=== PATIENT | female | born 1990 | race Caucasian/White ===

== ENCOUNTER 2019-04-14 19:14 | Emergency (ER) | payer OTHER ==
--- NOTE | 2019-04-14 20:01 | EDM.PDOC ---
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 Steward is a very pleasant 28-year-old woman with a past medical history significant for untreated ADHD, depression, and anxiety, who is 8 weeks 3 days gestation by dates, LMP 02/14/2019, Ab1. She states that she woke around 06:30 this morning with right lower quadrant abdominal pain. The pain is stabbing and throbbing in character. It does not radiate. She states that it has been constant all day, although she notes that if she is supine, the pain will tend to come and go, whereas if she is upright, it is constant. There has not been a change in the location or character of the pain over the course of the day. No associated fever, nausea, vomiting, constipation, diarrhea, or urinary symptoms. No vaginal bleeding, vaginal itching, or discharge. No prior similar symptoms, and the patient notes that her current symptoms are different than when she suffered a miscarriage in 2018. The patient has not undergone an obstetric ultrasound this . She is not taking any medications, including vitamins. The patient's PCP is Dr. Kenton Lundy. Her Surveyor Instrument Assistant is Dr. Anne Weir. The patient did receive an influenza vaccine this season. Right Lower Abdomen Pain Score (Numeric/FACES): 7 - Related Data Allergies Allergy/AdvReac Type Severity Reaction Status Date / Time No Known Allergies Allergy Verified 04/14/19 19:59 Home Meds: Home Meds . [No Known Home Meds] 04/14/19 [History] Past Medical History Psychiatric History: Reports: ADHD (untreated), Anxiety (untreated), Depression (untreated) Endocrine/Metabolic History: Reports: Obesity/BMI 30+ - Past Surgical History HEENT Surgical History: Reports: Adenoidectomy, Oral Surgery (wisdom teeth extraction), Tonsillectomy GI Surgical History: Reports: Cholecystectomy (2008) Female Surgical History: Reports: Section (x 3) Social & Family History - Tobacco Use Smoking Status *Q: Current Every Day Smoker Years of Tobacco use: 13 Packs/Tins Daily: 0.5 Packs/Tins Daily Comment: Down from 1 ppd - Alcohol Use Alcohol Use History: Yes Alcohol Use Frequency: Rarely (when not ) - Recreational Drug Use Recreational Drug Use: No - Living Situation & Occupation Living situation: Reports: , with Spouse, with Family (2 kids) Occupation: Unemployed ED ROS GENERAL - Review of Systems Review Of Systems: Comprehensive ROS is negative, except as noted in HPI. ED EXAM, GI/ABD - Physical Exam Exam: See Below Exam Limited By: No Limitations General Appearance: Alert, WD/WN, No Apparent Distress Eyes: Bilateral: Normal Appearance, EOMI Ears: Normal External Exam, Hearing Grossly Normal Nose: Normal Inspection Throat/Mouth: Normal Inspection, Normal Lips, Normal Voice, No Airway Compromise Head: Atraumatic, Normocephalic Neck: Normal Inspection, Full Range of Motion Respiratory/Chest: No Respiratory Distress, Lungs Clear, Normal Breath Sounds, No Accessory Muscle Use Cardiovascular: Normal Peripheral Pulses, Regular Rate, Rhythm, No Edema, No Gallop, No JVD, No Murmur, No Rub GI/Abdominal Exam: Normal Bowel Sounds, Soft, No Organomegaly, No Distention, No Abnormal Bruit, No Mass, Tender (RLQ only. Nontender elsewhere, and Rovsing sign is negative.), Mass (Small gravid uterus, consistent with dates) (Female) Exam: Deferred Rectal (Female) Exam: Deferred Back Exam: Normal Inspection, Full Range of Motion. No: CVA Tenderness (L), CVA Tenderness (R) Extremities: Normal Inspection, Normal Range of Motion, No Pedal Edema, Normal Capillary Refill Neurological: Alert, Oriented, Normal Cognition, No Motor/Sensory Deficits Psychiatric: Normal Affect Skin Exam: Warm, Dry, Intact, Normal Color, No Rash Course - Vital Signs Last Recorded V/S: Last Vital Signs Temp 37.6 C 04/14/19 19:57 Pulse 112 H 04/14/19 19:57 Resp 16 04/14/19 19:57 BP 120/92 H 04/14/19 19:57 Pulse Ox 100 04/14/19 19:57 - Orders/Labs/Meds Orders: Active Orders 24 hr Category Date Time Status Abdomen Ltd [US] Stat Exams 04/14/19 20:03 Taken Abdomen Pelvis w Cont [CT] Stat Exams 04/14/19 22:43 Taken OB Transvaginal [US] Stat Exams 04/14/19 20:02 Taken Sodium Chloride 0.9% [Normal Saline] 1,000 ml Med 04/14/19 20:15 Active IV ASDIRECTED Medication Orders Sodium Chloride (Normal Saline) 1,000 mls @ 100 mls/hr IV ASDIRECTED YENNIFER Last Admin: 04/14/19 20:39 Dose: 100 mls/hr Labs: Laboratory Tests 04/14/19 04/14/19 04/14/19 Range/Units 20:01 20:01 20:10 WBC (3.98-10.04) K/mm3 RBC (3.98-5.22) M/mm3 Hgb (11.2-15.7) gm/dl Hct (34.1-44.9) % MCV (79.4-94.8) fl MCH (25.6-32.2) pg MCHC (32.2-35.5) g/dl RDW Std Deviation (36.4-46.3) fL Plt Count (182-369) K/mm3 MPV (9.4-12.3) fl Neutrophils % (Manual) (40-60) % Band Neutrophils % (0-10) % Lymphocytes % (Manual) (20-40) % Atypical Lymphs % % Monocytes % (Manual) (2-10) % Eosinophils % (Manual) (0.7-5.8) % Basophils % (Manual) (0.1-1.2) Platelet Estimate Plt Morphology Comment RBC Morph Comment Sodium 138 (136-145) mEq/L Potassium 4.1 (3.5-5.1) mEq/L Chloride 106 (98-107) mEq/L Carbon Dioxide 22 (21-32) mEq/L Anion Gap 14.1 (5-15) BUN 16 (7-18) mg/dL Creatinine 0.6 (0.55-1.02) mg/dL Est Cr Clr Drug Dosing 127.85 mL/min Estimated GFR (MDRD) > 60 (>60) mL/min BUN/Creatinine Ratio 26.7 H (14-18) Glucose 84 (74-106) mg/dL Calcium 9.5 (8.5-10.1) mg/dL Total Bilirubin 0.2 (0.2-1.0) mg/dL AST 19 (15-37) U/L ALT 24 (14-59) U/L Alkaline Phosphatase 97 (46-116) U/L Total Protein 7.5 (6.4-8.2) g/dl Albumin 3.6 (3.4-5.0) g/dl Globulin 3.9 gm/dL Albumin/Globulin Ratio 0.9 L (1-2) HCG, Quant 55479.0 mIU/mL Urine Color Yellow (Yellow) Urine Appearance Clear (Clear) Urine pH 7.0 (5.0-8.0) Ur Specific [place] > or = 1.030 (1.005-1.030) Urine Protein Negative (Negative) Urine Glucose (UA) Negative (Negative) Urine Ketones Negative (Negative) Urine Occult Blood Negative (Negative) Urine Nitrite Negative (Negative) Urine Bilirubin Negative (Negative) Urine Urobilinogen 0.2 (0.2-1.0) Ur Leukocyte Esterase Negative (Negative) Urine RBC Not seen (0-5) /hpf Urine WBC 0-5 (0-5) /hpf Ur Squamous Epith Cells 0-5 (0-5) /hpf Amorphous Sediment Few H (NOT SEEN) /hpf Urine Bacteria Rare (FEW) /hpf Urine Mucus Not seen (FEW) /hpf 04/14/19 Range/Units 22:15 WBC 8.99 (3.98-10.04) K/mm3 RBC 4.50 (3.98-5.22) M/mm3 Hgb 12.9 (11.2-15.7) gm/dl Hct 38.8 (34.1-44.9) % MCV 86.2 (79.4-94.8) fl MCH 28.7 (25.6-32.2) pg MCHC 33.2 (32.2-35.5) g/dl RDW Std Deviation 42.3 (36.4-46.3) fL Plt Count 239 (182-369) K/mm3 MPV 11.4 (9.4-12.3) fl Neutrophils % (Manual) 58 (40-60) % Band Neutrophils % 1 (0-10) % Lymphocytes % (Manual) 34 (20-40) % Atypical Lymphs % 0 % Monocytes % (Manual) 6 (2-10) % Eosinophils % (Manual) 1 (0.7-5.8) % Basophils % (Manual) 0 L (0.1-1.2) Platelet Estimate Adequate Plt Morphology Comment Normal RBC Morph Comment Normal Sodium (136-145) mEq/L Potassium (3.5-5.1) mEq/L Chloride (98-107) mEq/L Carbon Dioxide (21-32) mEq/L Anion Gap (5-15) BUN (7-18) mg/dL Creatinine (0.55-1.02) mg/dL Est Cr Clr Drug Dosing mL/min Estimated GFR (MDRD) (>60) mL/min BUN/Creatinine Ratio (14-18) Glucose (74-106) mg/dL Calcium (8.5-10.1) mg/dL Total Bilirubin (0.2-1.0) mg/dL AST (15-37) U/L ALT (14-59) U/L Alkaline Phosphatase (46-116) U/L Total Protein (6.4-8.2) g/dl Albumin (3.4-5.0) g/dl Globulin gm/dL Albumin/Globulin Ratio (1-2) HCG, Quant mIU/mL Urine Color (Yellow) Urine Appearance (Clear) Urine pH (5.0-8.0) Ur Specific [place] (1.005-1.030) Urine Protein (Negative) Urine Glucose (UA) (Negative) Urine Ketones (Negative) Urine Occult Blood (Negative) Urine Nitrite (Negative) Urine Bilirubin (Negative) Urine Urobilinogen (0.2-1.0) Ur Leukocyte Esterase (Negative) Urine RBC (0-5) /hpf Urine WBC (0-5) /hpf Ur Squamous Epith Cells (0-5) /hpf Amorphous Sediment (NOT SEEN) /hpf Urine Bacteria (FEW) /hpf Urine Mucus (FEW) /hpf Meds: Medications Generic Name Dose Route Start Last Admin Trade Name Freq PRN Reason Stop Dose Admin Sodium Chloride 1,000 mls @ 100 mls/hr 04/14/19 20:15 04/14/19 20:39 Normal Saline IV 100 mls/hr ASDIRECTED YENNIFER Administration - Re-Assessments/Exams Free Text/Narrative Re-Assessment/Exam: 04/14/19 19:58 The patient's history and physical examination are concerning for acute appendicitis. Patient is willing to undergo a CT scan of the abdomen and pelvis with oral and IV contrast, however, wanted to discuss the case with OB prior to proceeding. Case discussed with Dr. Wayne at 19:55. He feels that there is no significant increased risk to the fetus with a single CT scan, however, he recommended that we obtain an obstetric ultrasound to confirm an intrauterine . Since we will be doing an ultrasound anyway, I will add an ultrasound of the right lower quadrant, on the off-chance that it can visualize and evaluate the appendix. If the ultrasound cannot rule out appendicitis, however, we will then proceed with a CT scan. In the meantime, I will order blood work and a urinalysis. The patient will receive IV fluid. 04/14/19 21:59 Notified by the electronic security technician that the transvaginal ultrasound appears to demonstrate a single intrauterine at 5 weeks 6 days. No heart motion was detected, but it may be too early. She also imaged what she thought might be the appendix, but the quality is low. We will have to see what the Radiologist's interpretation is. 04/14/19 22:38 Transvaginal obstetric ultrasound is read by [facility] as: 1. Findings probably represent early intrauterine gestation. Absence of documented cardiac activity can be explained by small size. 2. Estimated gestational age based on today's ultrasound is 5 weeks 6 days. 3. The estimated date of delivery based on today's ultrasound is 12/09/2019. Ultrasound of the right lower quadrant is read by [facility] as "Equivocal study for appendicitis." As above, we will proceed with a CT scan of the abdomen and pelvis to evaluate for appendicitis. 04/14/19 23:05 The patient's CBC is unremarkable. Her CMP is unremarkable. Her quantitative hCG is 13,256. Her urinalysis is unremarkable. 04/15/19 00:25 CT of the abdomen and pelvis with oral and IV contrast is read by [facility] as: 1. Source of the patient's right lower quadrant pain is not elucidated. Normal appendix. 2. Small gestational sac is seen within the uterus, 1 cm. 3. There is an above average quantity of stool within the colon to the rectum. 04/15/19 00:28 Test results discussed with the patient (her is not currently present). As above, the etiology of her right lower quadrant pain and tenderness is not known, but does not appear to be due to appendicitis. I offered to place patient in observation for serial examinations, but she would prefer to go home. I would like her to follow-up with either Dr. Weir or Dr. Lundy tomorrow or Friday, if possible. She is to return to the ED if her symptoms worsen. Departure - Departure Time of Disposition: 00:29 Disposition: Home, Self-Care 01 Condition: Good Clinical Impression: Right lower quadrant abdominal pain of unknown etiology, First trimester - Discharge Information *PRESCRIPTION DRUG MONITORING PROGRAM REVIEWED*: Not Applicable *COPY OF PRESCRIPTION DRUG MONITORING REPORT IN PATIENT ROBERTA: Not Applicable Referrals: Anne Weir MD [Primary Care Provider] - Kenton Lundy MD [Physician] - Forms: ED Department Discharge Additional Instructions: You were seen in the emergency room after developing lower right abdominal pain this morning. Workup in the ER included blood work, a urinalysis, and obstetric ultrasound, an ultrasound of your lower right abdomen, and a CT scan of your abdomen and pelvis with oral and IV contrast. Your quantitative hCG = hormone is 13,256. The remainder of your blood work and your urinalysis were unremarkable. The obstetric ultrasound found a single intrauterine at 5 weeks 6 days. No heart movement was detected, but that is probably because the embryo is so young. The ultrasound of your lower right abdomen was unable to adequately visualize the appendix, but the CT scan was, and found it to be normal. No cause of your abdominal pain was found. Placement into observation for serial exams was offered, but declined. Because you received IV contrast, we recommend that you stay adequately hydrated for the next week. We recommend that you follow-up with either Dr. Kenton Lundy or Dr. Anne Weir either or Friday, if possible. Please return to the ER if your symptoms worsen. Sepsis Event Note - Focused Exam Vital Signs: Vital Signs Temp Pulse Resp BP Pulse Ox 04/14/19 19:57 37.6 C 112 H 16 120/92 H 100 Date Exam was Performed: 04/15/19 Time Exam was Performed: 00:25 - My Orders Last 24 Hours: My Active Orders 04/14/19 20:02 OB Transvaginal [US] Stat 04/14/19 20:03 Abdomen Ltd [US] Stat 04/14/19 20:15 Sodium Chloride 0.9% [Normal Saline] 1,000 ml IV ASDIRECTED 04/14/19 22:43 Abdomen Pelvis w Cont [CT] Stat - Assessment/Plan Last 24 Hours: My Active Orders 04/14/19 20:02 OB Transvaginal [US] Stat 04/14/19 20:03 Abdomen Ltd [US] Stat 04/14/19 20:15 Sodium Chloride 0.9% [Normal Saline] 1,000 ml IV ASDIRECTED 04/14/19 22:43 Abdomen Pelvis w Cont [CT] Stat
[2019-04-14] MEDS ORDERED: Sodium Chloride 0.9% 1,000 ML IV SCH (20:15)
--- NOTE | 2019-04-15 06:40 | US ---
Limited abdominal ultrasound: Multiple real-time images of the right lower abdomen were obtained. Bowel is seen within the right lower abdomen which shows compression. No fluid around this structure is seen. No definite findings of appendicitis are seen. Impression: 1. No definite findings of appendicitis. Diagnostic code #1 This report was dictated in [place] Standard Time I agree with preliminary report from [facility], finalized on 04/14/19, 11:36 PM Central Time
--- NOTE | 2019-04-15 08:03 | US ---
First trimester obstetrical ultrasound: Multiple real-time images were obtained transvaginally. Comparison: No previous ultrasound for current . Dates: LMP: LMP given as 02/14/19, DONELL 11/21/19, gestational age 8 weeks 3 days Current ultrasound: DONELL 12/09/19, gestational age 5 weeks 6 days Single intrauterine gestation is seen. Yolk sac and pole are noted. Right and left maternal ovaries appear within normal limits. Trace fluid noted within the cul-de-sac which is felt to be incidental. Measurements: [place]-rump length: 0.27 cm - 5 weeks 6 days Heart rate: None measured at this time Impression: 1. Single intrauterine gestation. Dates as noted above. 2. No heart activity is seen most likely relating to the early gestational age. Normal developing can be confirmed with repeat study in 11 days if clinically needed. Diagnostic code #1 This report was dictated in [place] Standard Time I agree with preliminary report from [facility], finalized on 04/14/19, 11:34 PM Central Time
--- NOTE | 2019-04-15 08:03 | CT ---
CT abdomen and pelvis Technique: Multiple axial sections were obtained from above the dome of the diaphragm inferiorly through the pubic symphysis. Intravenous and oral contrast was utilized. Comparison: No prior abdominal imaging. Findings: Visualized lung bases show nothing acute. Liver and spleen show no focal abnormality. Surgical clips are seen from prior cholecystectomy. Adrenal glands show no nodule. Pancreas shows no discrete abnormality. Kidneys show symmetric contrast enhancement without hydronephrosis or mass. Aorta shows no aneurysm. No retroperitoneal adenopathy or mesenteric abnormalities are seen. Appendix is seen which is normal in size. No pelvic mass or adenopathy is seen. No free fluid or inflammatory change is seen. Impression: 1. No abnormality is appreciated on CT study of the abdomen and pelvis. Normal appendix is noted. Diagnostic code #1 This report was dictated in [place] Standard Time I agree with preliminary report from [facility], finalized on , 12:49 AM Central Time
== END 2019-04-15 00:42 | disposition home or self-care (01) ==
LOC: JD.ED 19:14
DX: O99.89 Other specified diseases and conditions complicating pregnancy, childbirth and the puerperium (principal); R10.31 Right lower quadrant pain; O99.331 Smoking (tobacco) complicating pregnancy, first trimester; F17.210 Nicotine dependence, cigarettes, uncomplicated; Z90.49 Acquired absence of other specified parts of digestive tract; Z3A.08 8 weeks gestation of pregnancy
CPT/HCPCS: 36415; 74177; 76705; 76817; 80053; 81001; 84702; 85007; 85027; 96360; 96361; 99284; J7030; 99283

== ENCOUNTER 2019-12-02 05:22 | Inpatient (IN) | payer OTHER ==
[~2019-12-02 05:22] MED LIST: Citric Acid/Sodium Citrate Solution 30 ML Cup PO ONE; Lactated Ringers 1,000 ML IV SCH; Metoclopramide 10 MG/2 ML SDV IVPUSH ONE; Oxytocin/Lactated Ringers 10 UNIT/1,000 ML BAG IV SCH; Sodium Chloride 0.9% 10 ML Syringe FLUSH PRN
--- NOTE | 2019-12-02 06:18 | PCM.PREANE ---
Preanesthetic Assessment - Procedure Proposed Procedure: Repeat - Anesthesia/Transfusion/Family Hx Anesthesia History: Prior Anesthesia Without Reaction Transfusion History: No Prior Transfusion(s) - Review of Systems General: No Symptoms Pulmonary: No Symptoms Cardiovascular: No Symptoms Gastrointestinal: No Symptoms Neurological: No Symptoms Other: Reports: Depression, Anxiety - Physical Assessment Height: 1.6 m ASA Class: 2 Mental Status: Alert & Oriented x3 Airway Class: Mallampati = 3 Dentition: Reports: Normal Dentition Thyro-Mental Finger Breadths: 3 Mouth Opening Finger Breadths: 3 ROM/Head Extension: Full Lungs: Clear to Auscultation, Normal Respiratory Effort Cardiovascular: Regular Rate, Regular Rhythm - Allergies Allergies/Adverse Reactions: Allergies Allergy/AdvReac Type Severity Reaction Status Date / Time No Known Allergies Allergy Verified 12/02/19 04:50 - Acknowledgements Anesthesia Type Planned: Spinal Pt an Appropriate Candidate for the Planned Anesthesia: Yes Alternatives and Risks of Anesthesia Discussed w Pt/Guardian: Yes Pt/Guardian Understands and Agrees with Anesthesia Plan: Yes PreAnesthesia Questionnaire Gastrointestinal History: Reports: GERD (severe gastric reflux per pt) 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 1 SAB- 2017 Psychiatric History: Reports: ADHD, Anxiety, Depression Other Psychiatric History: Prior to took Lexapro daily Endocrine/Metabolic History: Reports: Obesity/BMI 30+ - Past Surgical History HEENT Surgical History: Reports: Adenoidectomy, Oral Surgery, Tonsillectomy GI Surgical History: Reports: Cholecystectomy Female Surgical History: Reports: Section - SUBSTANCE USE Smoking Status *Q: Current Every Day Smoker Tobacco Use Within Last Twelve Months: Cigarettes Second Hand Smoke Exposure: Yes Recreational Drug Use History: No - HOME MEDS Home Medications: Home Meds Pnv No.95/Ferrous Fum/Folic AC [ Vitamin Tablet] 1 tab PO DAILY 12/01/19 [History] - CURRENT (IN HOUSE) MEDS Current Meds: Current Medications Oxytocin/Lactated Ringer's (Pitocin In Lr 10 Units/1,000 Ml) 10 unit in 1,000 mls @ 100 mls/hr IV ASDIRECTED YENNIFER; Protocol Lactated Ringer's (Ringers, Lactated) 1,000 mls @ 125 mls/hr IV ASDIRECTED YENNIFER Sodium Chloride (Saline Flush) 10 ml FLUSH ASDIRECTED PRN PRN Reason: Keep Vein Open Discontinued Medications Citric Acid/Sodium Citrate (Bicitra Solution) 30 ml PO ONETIME ONE Stop: 12/02/19 04:51 Cefazolin Sodium/Dextrose 3 gm (/ Premix) 75 mls @ 100 mls/hr IV ONETIME ONE Stop: 12/02/19 05:34 Metoclopramide HCl (Reglan) 10 mg IVPUSH ONETIME ONE Stop: 12/02/19 04:51
[2019-12-02] MEDS ORDERED: Morphine PF 1 MG/ML Amp ONE (06:22)
[2019-12-02] MEDS ORDERED: Oxytocin 10 Units/1 ML SDV ONE ×2 (06:22→08:42)
[2019-12-02] MEDS ORDERED: ceFAZolin 1 GM Vial ONE (06:22)
[2019-12-02] MEDS ORDERED: Bupivacaine 0.5% 30 ML SDV ONE (07:16)
[2019-12-02] MEDS ORDERED: Lactated Ringers 2,000 ML ONE (08:04)
[2019-12-02] MEDS ORDERED: diphenhydrAMINE 50 MG/ML SDV IVPUSH PRN ×2 (08:21→11:21)
[2019-12-02] MEDS ORDERED: Ondansetron 4 MG/2 ML SDV IVPUSH PRN (08:21)
[2019-12-02] MEDS ORDERED: fentaNYL 100 MCG/2 ML SDV IVPUSH PRN (08:21)
[2019-12-02] MEDS ORDERED: Ketorolac 30 MG/ML SDV ONE (08:22)
[2019-12-02] MEDS ORDERED: ePHEDrine Sulfate/0.9% NaCl/Pf 25 MG/5 ML SYRINGE IV ONE (08:22)
--- NOTE | 2019-12-02 09:02 | PCM.OPNOTE ---
- General Post-Op/Procedure Note Date of Surgery/Procedure: 12/02/19 Findings: Viable male, weight 6#13, 8/9 APGARS, significant adhesions, at 0845 Post-Op Diagnosis: Same Primary Surgeon: Mary Jo Tafoya Radio Station Operator: Anne Weir Fluid Replacement, Intraop: 2,000 Output, Urine Amount: 50 EBL in mLs: 500 Complications: None Condition: Good Free Text/Narrative:: The patient was taken to the operating room where spinal anesthesia was dosed to surgical levels without difficulty. The patient was prepped and draped in the usual sterile fashion in the dorsal supine position with a leftward tilt. A Pfannenstiel skin incision was made with the scalpel and carried through to the underlying layer of fascia. The fascia was incised in the midline and extended laterally using Gordillo scissors. Jayda clamps were used to elevate the superior aspect of the fascial incision, which was elevated, and the underlying rectus muscles were dissected off bluntly and using Gordillo scissors. Attention was then turned to the inferior aspect of the fascial incision, which in similar fashion was grasped with Jayda clamps, elevated, and the underlying rectus muscles were dissected off bluntly and using the gordillo. The rectus muscles were dissected in the midline. The peritoneum was entered bluntly; this incision was extended superiorly and inferiorly with good visualization of the bladder. Significant omental adhesions takend down to bladder flap region. The bladder blade was inserted. The vesicou terine peritoneum was identified and entered sharply using Metzenbaum scissors. This incision was extended laterally and the bladder flap was created digitally. The bladder blade was reinserted. The lower uterine segment was incised in a transverse fashion using the scalpel and with digital traction. Clear fluid was noted. The infant was subsequently delivered by flexing the head to the incision. Body and shoulders followed without difficulty. The cord was clamped and cut. The was subsequently handed to the awaiting developer evangelist whose presence had been requested.. The placenta was delivered spontaneously intact with a three-vessel cord noted. The uterus was exteriorized and cleared of all clots and debris. The uterine incision was repaired in 2 layers using 0 monocryl. Hemostasis was visualized. Hemostasis was visualized bilaterally. The uterus was returned to the abdomen. The uterine incision was reexamined and it was noted to be hemostatic. The pelvis was copiously irrigated. The fascia was closed with 1 PDS suture, and the skin was closed with 3-0 monocryl. Sponge, lap, and instrument counts were correct x2. The patient was stable at the completion of the procedure and was subsequently transferred to the recovery room in stable condition.
[2019-12-02] MEDS ORDERED: Acetaminophen/oxyCODONE 325-5 MG Tab PO PRN (11:21)
[2019-12-02] MEDS ORDERED: ePHEDrine 50 MG/ML SDV IVPUSH PRN (11:21)
[2019-12-02] MEDS ORDERED: Naloxone 0.4 MG/ML SDV IVPUSH PRN (11:21)
[2019-12-02] MEDS ORDERED: Dextrose 5%-Lactated Ringers 1,000 ML IV SCH (11:30)
[2019-12-02] MEDS ORDERED: Ketorolac 30 MG/ML SDV IVPUSH SCH (11:30)
[2019-12-02] MEDS: Ketorolac 30 MG/ML SDV IVPUSH SCH ×2 (14:54→20:44)
[2019-12-02] MEDS ORDERED: Lactated Ringers 1,000 ML IV ONE (15:13)
[2019-12-02] MEDS: Acetaminophen/oxyCODONE 325-5 MG Tab PO PRN ×2 (16:04→21:10)
[2019-12-03] MEDS: Ketorolac 30 MG/ML SDV IVPUSH SCH (02:55)
[2019-12-03] MEDS: Acetaminophen/oxyCODONE 325-5 MG Tab PO PRN ×4 (03:19→19:23)
--- NOTE | 2019-12-03 05:37 | PCM.PNPP ---
- General Info Date of Service: 12/03/19 Functional Status: Reports: Pain Controlled, Tolerating Diet, Ambulating, Urinating - Review of Systems General: Reports: No Symptoms Pulmonary: Reports: No Symptoms Cardiovascular: Reports: No Symptoms Gastrointestinal: Reports: Abdominal Pain (managed with medications ) Genitourinary: Reports: No Symptoms Musculoskeletal: Reports: No Symptoms Neurological: Reports: No Symptoms - Patient Data Vital Signs - Most Recent: Last Vital Signs Temp 36.4 C 12/03/19 04:00 Pulse 90 12/03/19 04:00 Resp 16 12/03/19 04:48 BP 120/74 12/03/19 04:00 Pulse Ox 97 12/03/19 04:48 Weight - Most Recent: 106.322 kg I&O - Last 24 Hours: Intake & Output 12/02/19 12/02/19 12/03/19 14:59 22:59 06:59 Intake Total 2900 2000 Output Total 065 114 5884 Balance 2770 1400 -1250 Lab Results - Last 24 Hours: Laboratory Results - last 24 hr 12/02/19 12/02/19 12/02/19 Range/Units 06:25 06:25 06:25 WBC 7.62 (3.98-10.04) K/mm3 RBC 4.28 (3.98-5.22) M/mm3 Hgb 10.5 L D (11.2-15.7) gm/dl Hct 33.7 L (34.1-44.9) % MCV 78.7 L D (79.4-94.8) fl MCH 24.5 L (25.6-32.2) pg MCHC 31.2 L (32.2-35.5) g/dl RDW Std Deviation 43.2 (36.4-46.3) fL Plt Count 211 (182-369) K/mm3 MPV 11.3 (9.4-12.3) fl Neut % (Auto) 68.2 (34.0-71.1) % Lymph % (Auto) 20.1 (19.3-51.7) % Millard % (Auto) 10.6 (4.7-12.5) % Eos % (Auto) 0.4 L (0.7-5.8) Baso % (Auto) 0.3 (0.1-1.2) % Neut # (Auto) 5.20 (1.56-6.13) K/mm3 Lymph # (Auto) 1.53 (1.18-3.74) K/mm3 Millard # (Auto) 0.81 H (0.24-0.36) K/mm3 Eos # (Auto) 0.03 L (0.04-0.36) K/mm3 Baso # (Auto) 0.02 (0.01-0.08) K/mm3 RPR Non-reactive (NONREACTIVE) Blood Type A POSITIVE Gel Antibody Screen Negative Med Orders - Current: Current Medications Diphenhydramine HCl (Benadryl) 25 mg IVPUSH Q6H PRN PRN Reason: Itching or Nausea Ephedrine Sulfate (Ephedrine Sulfate) 5 mg IVPUSH SEECOMMENT PRN PRN Reason: Other Ibuprofen (Motrin) 600 mg PO Q6H PRN PRN Reason: mild pain or fever Naloxone HCl (Narcan) 0.1 mg IVPUSH SEECOMMENT PRN PRN Reason: Respiratory Depression Oxycodone/Acetaminophen (Percocet 325-5 Mg) 2 tab PO Q4H PRN PRN Reason: Pain (severe 7-10) Last Admin: 12/03/19 03:19 Dose: 2 tab Documented by: Oxycodone/Acetaminophen (Percocet 325-5 Mg) 1 tab PO Q4H PRN PRN Reason: Pain (moderate 4-6) Discontinued Medications Bupivacaine HCl (Marcaine 0.5%) Confirm Administered Dose 30 ml .ROUTE .STK-MED ONE Stop: 12/02/19 07:17 Last Admin: 12/02/19 08:15 Dose: 20 ml Documented by: Cefazolin Sodium (Ancef) Confirm Administered Dose 2 gm .ROUTE .STK-MED ONE Stop: 12/02/19 06:23 Citric Acid/Sodium Citrate (Bicitra Solution) 30 ml PO ONETIME ONE Stop: 12/02/19 04:51 Last Admin: 12/02/19 06:52 Dose: 30 ml Documented by: Diphenhydramine HCl (Benadryl) 25 mg IVPUSH Q6H PRN PRN Reason: Pruritis Ephedrine Sulfate (Ephedrine 25 Mg/5 Ml Syringe) Confirm Administered Dose 25 mg IV .STK-MED ONE Stop: 12/02/19 08:23 Fentanyl (Sublimaze) 50 mcg IVPUSH Q5M PRN PRN Reason: Pain Cefazolin Sodium/Dextrose 3 gm (/ Premix) 75 mls @ 100 mls/hr IV ONETIME ONE Stop: 12/02/19 05:34 Last Admin: 12/02/19 10:51 Dose: Not Given Documented by: Oxytocin/Lactated Ringer's (Pitocin In Lr 10 Units/1,000 Ml) 10 unit in 1,000 mls @ 100 mls/hr IV ASDIRECTED [facility]; Protocol Lactated Ringer's (Ringers, Lactated) 1,000 mls @ 125 mls/hr IV ASDIRECTED [facility] Last Admin: 12/02/19 06:29 Dose: 125 mls/hr Documented by: Lactated Ringer's (Ringers, Lactated) Confirm Administered Dose 2,000 mls @ as directed .ROUTE .STK-MED ONE Stop: 12/02/19 08:05 Dextrose/Lactated Ringer's (Dextrose 5%-Lactated Ringers) 1,000 mls @ 125 mls/hr IV ASDIRECTED [facility] Stop: 12/02/19 19:29 Last Admin: 12/02/19 11:34 Dose: 125 mls/hr Documented by: Lactated Ringer's (Ringers, Lactated) 1,000 mls @ 999 mls/hr IV .BOLUS ONE Stop: 12/02/19 16:13 Last Admin: 12/02/19 15:27 Dose: 999 mls/hr Documented by: Ketorolac Tromethamine (Toradol) Confirm Administered Dose 30 mg .ROUTE .STK-MED ONE Stop: 12/02/19 08:23 Ketorolac Tromethamine (Toradol) 30 mg IVPUSH Q6H [facility] Stop: 12/02/19 23:31 Last Admin: 12/02/19 22:09 Dose: Not Given Documented by: Ketorolac Tromethamine (Toradol) 30 mg IVPUSH Q6H [facility] Stop: 12/03/19 03:01 Last Admin: 12/03/19 02:55 Dose: 30 mg Documented by: Lidocaine HCl (Xylocaine-Mpf 1%) Confirm Administered Dose 5 ml .ROUTE .STK-MED ONE Stop: 12/02/19 08:08 Metoclopramide HCl (Reglan) 10 mg IVPUSH ONETIME ONE Stop: 12/02/19 04:51 Last Admin: 12/02/19 06:53 Dose: 10 mg Documented by: Miscellaneous Medication (Phenylephrine 1 Mg/10 Ml-Ns) Confirm Administered Dose 1 mg IV .STK-MED ONE Stop: 12/02/19 08:38 Morphine Sulfate (Duramorph Pf) Confirm Administered Dose 1 mg .ROUTE .STK-MED ONE Stop: 12/02/19 06:23 Ondansetron HCl (Zofran) 4 mg IVPUSH ONETIME PRN PRN Reason: Nausea/Vomiting Oxytocin (Pitocin) Confirm Administered Dose 10 unit .ROUTE .STK-MED ONE Stop: 12/02/19 06:23 Oxytocin (Pitocin) Confirm Administered Dose 10 unit .ROUTE .STK-MED ONE Stop: 12/02/19 08:43 Sodium Chloride (Saline Flush) 10 ml FLUSH ASDIRECTED PRN PRN Reason: Keep Vein Open - Infant Interaction Infant Disposition, : [place] in Room with Family Infant Interaction: Holding Infant Support Person: - Recovery Exam Fundal Tone: Firm Fundal Level: At Umbilicus Fundal Placement: Midline Lochia Amount: Scant, Small Lochia Color: Rubra/Red Perineum Description: Intact, Minimal Bruising/Swelling Episiotomy/Laceration: None Bladder Status: Indwelling Catheter in Place - Exam General: Alert, Oriented, Cooperative Lungs: Clear to Auscultation, Normal Respiratory Effort Cardiovascular: Regular Rate, Regular Rhythm GI/Abdominal Exam: Soft, Non-Tender Extremities: Normal Inspection - Problem List Review Problem List Initiated/Reviewed/Updated: Yes - Assessment Assessment:: POD#1 - Plan Plan:: * Routine cares * Post op CBC appropriate * DIscharge home 1-2 days
--- NOTE | 2019-12-03 08:34 | PCM48HPAN ---
Post Anesthesia Note - EVALUATION WITHIN 48HRS OF ANESTHETIC Vital Signs in Normal Range: Yes Patient Participated in Evaluation: Yes Respiratory Function Stable: Yes Airway Patent: Yes Cardiovascular Function Stable: Yes Hydration Status Stable: Yes Pain Control Satisfactory: Yes Nausea and Vomiting Control Satisfactory: Yes Mental Status Recovered: Yes Vital Signs: Last Vital Signs Temp 97.6 F 12/03/19 04:00 Pulse 90 12/03/19 04:00 Resp 16 12/03/19 06:59 BP 120/74 12/03/19 04:00 Pulse Ox 98 12/03/19 06:59
[2019-12-03] MEDS: Ibuprofen 600 MG Tab PO PRN (15:12)
[2019-12-03] MEDS: Docusate Sodium 100 MG Cap PO PRN (15:53)
[2019-12-04] MEDS: Acetaminophen/oxyCODONE 325-5 MG Tab PO PRN ×2 (03:05→08:38)
[2019-12-04] MEDS: Docusate Sodium 100 MG Cap PO PRN (03:06)
[2019-12-04] MEDS: Ibuprofen 600 MG Tab PO PRN (05:16)
--- NOTE | 2019-12-04 10:31 | PCM.DCSUM1 ---
Discharge Summary - Hospital Course Free Text/Narrative:: [facility] Post-Op/Procedure Note Patient Name: ORLIN BARKER Date of : 89 Patient Status: Inpatient Attending Provider: Mary Jo Tafoya Date: 12/02/19 08:58 Initialization Date: 12/02/19 08:58 - General Post-Op/Procedure Note Date of Surgery/Procedure: 12/02/19 Findings: Viable male, weight 6#13, 8/9 APGARS, significant adhesions, at 0845 Post-Op Diagnosis: Same Primary Surgeon: MaryJ o Tafoya Marketing Administrative Assistant: Anne Weir Fluid Replacement, Intraop: 2,000 Output, Urine Amount: 50 EBL in mLs: 500 Complications: None Condition: Good Free Text/Narrative:: The patient was taken to the operating room where spinal anesthesia was dosed to surgical levels without difficulty. The patient was prepped and draped in the usual sterile fashion in the dorsal supine position with a leftward tilt. A Pfannenstiel skin incision was made with the scalpel and carried through to the underlying layer of fascia. The fascia was incised in the midline and extended laterally using Gordillo scissors. Jayda clamps were used to elevate the superior aspect of the fascial incision, which was elevated, and the underlying rectus muscles were dissected off bluntly and using Gordillo scissors. Attention was then turned to the inferior aspect of the fascial incision, which in similar fashion was grasped with Jayda clamps, elevated, and the underlying rectus muscles were dissected off bluntly and using the gordillo. The rectus muscles were dissected in the midline. The peritoneum was entered bluntly; this incision was extended superiorly and inferiorly with good visualization of the bladder. Significant omental adhesions takend down to bladder flap region. The bladder blade was inserted. The vesicouterine peritoneum was identified and entered sharply using Metzenbaum scissors. This incision was extended laterally and the bladder flap was created digitally. The bladder blade was reinserted. The lower uterine segment was incised in a transverse fashion using the scalpel and with digital traction. Clear fluid was noted. The was subsequently delivered by flexing the head to the incision. Body and shoulders followed without difficulty. The cord was clamped and cut. The was subsequently handed to the awaiting space physicist whose presence had been requested.. The placenta was delivered spontaneously intact with a three-vessel cord noted. The uterus was exteriorized and cleared of all clots and debris. The uterine incision was repaired in 2 layers using 0 monocryl. Hemostasis was visualized. Hemostasis was visualized bilaterally. The uterus was returned to the abdomen. The uterine incision was reexamined and it was noted to be hemostatic. The pelvis was copiously irrigated. The fascia was closed with 1 PDS suture, and the skin was closed with 3-0 monocryl. Sponge, lap, and instrument counts were correct x2. The patient was stable at the completion of the procedure and was subsequently transferred to the recovery room in stable condition. HPI Initial Comments: [facility] Post-Op/Procedure Note Patient Name: ORLIN BARKER Date of : [birth year] Patient Status: Inpatient Attending Provider: Mary Jo Tafoya Date: 12/02/19 08:58 Initialization Date: 12/02/19 08:58 - General Post-Op/Procedure Note Date of Surgery/Procedure: 12/02/19 Findings: Viable male, weight 6#13, 8/9 APGARS, significant adhesions, at 0845 Post-Op Diagnosis: Same Primary Surgeon: Mary Jo Tafoya Marketing Administrative Assistant: Anne Weir Fluid Replacement, Intraop: 2,000 Output, Urine Amount: 50 EBL in mLs: 500 Complications: None Condition: Good Free Text/Narrative:: The patient was taken to the operating room where spinal anesthesia was dosed to surgical levels without difficulty. The patient was prepped and draped in the usual sterile fashion in the dorsal supine position with a leftward tilt. A Pfannenstiel skin incision was made with the scalpel and carried through to the underlying layer of fascia. The fascia was incised in the midline and extended laterally using Gordillo scissors. Jayda clamps were used to elevate the superior aspect of the fascial incision, which was elevated, and the underlying rectus muscles were dissected off bluntly and using Gordillo scissors. Attention was then turned to the inferior aspect of the fascial incision, which in similar fashion was grasped with Jayda clamps, elevated, and the underlying rectus muscles were dissected off bluntly and using the gordillo. The rectus muscles were dissected in the midline. The peritoneum was entered bluntly; this incision was extended superiorly and inferiorly with good visualization of the bladder. Significant omental adhesions takend down to bladder flap region. The bladder blade was inserted. The vesicouterine peritoneum was identified and entered sharply using Metzenbaum scissors. This incision was extended laterally and the bladder flap was created digitally. The bladder blade was reinserted. The lower uterine segment was incised in a transverse fashion using the scalpel and with digital traction. Clear fluid was noted. The infant was subsequently delivered by flexing the head to the incision. Body and shoulders followed without difficulty. The cord was clamped and cut. The was subsequently handed to the awaiting space physicist whose presence had been requested.. The placenta was delivered spontaneously intact with a three-vessel cord noted. The uterus was exteriorized and cleared of all clots and debris. The uterine incision was repaired in 2 layers using 0 monocryl. Hemostasis was visualized. Hemostasis was visualized bilaterally. The uterus was returned to the abdomen. The uterine incision was reexamined and it was noted to be hemostatic. The pelvis was copiously irrigated. The fascia was closed with 1 PDS suture, and the skin was closed with 3-0 monocryl. Sponge, lap, and instrument counts were correct x2. The patient was stable at the completion of the procedure and was subsequently transferred to the recovery room in stable condition. Brief History: [facility] . Post-Op/Procedure Note. Patient Name: ORLIN BARKER [facility] Record Number: [id number]. Date of : [birth year]Patient Status: Inpatient. Attending Provider: Mary Jo TafoyaAccount Number: [id number]. Date: 12/02/19 08:58Initialization Date: 12/02/19 08:58. - General Post-Op/Procedure Note. Date of Surgery/Procedure: 12/02/19. Findings: Viable male, weight 6#13, 8/9 APGARS, significant adhesions, at 0845. Post-Op Diagnosis: Same. Primary Surgeon: Mary Jo Tafoya. Marketing Administrative Assistant: Anne Weir Fluid Replacement, Intraop: 2,000. Output, Urine Amount: 50. EBL in mLs: 500. Complications: None. Condition: Good. Free Text/Narrative:: The patient was taken to the operating room where spinal anesthesia was dosed to surgical levels without difficulty. The patient was prepped and draped in the usual sterile fashion in the dorsal supine position with a leftward tilt. A Pfannenstiel skin incision was made with the scalpel and carried through to the underlying layer of fascia. The fascia was incised in the midline and extended laterally using Gordillo scissors. Jayda clamps were used to elevate the superior aspect of the fascial incision, which was elevated, and the underlying rectus muscles were dissected off bluntly and using Gordillo scissors. Attention was then turned to the inferior aspect of the fascial incision, which in similar fashion was grasped with Jayda clamps, elevated, and the underlying rectus muscles were dissected off bluntly and using the gordillo. The rectus muscles were dissected in the midline. The peritoneum was entered bluntly; this incision was extended superiorly and inferiorly with good visualization of the bladder. Significant omental adhesions takend down to bladder flap region. The bladder blade was inserted. The vesicouterine peritoneum was identified and entered sharply using Metzenbaum scissors. This incision was extended laterally and the bladder flap was created digitally. The bladder blade was reinserted. The lower uterine segment was incised in a transverse fashion using the scalpel and with digital traction. Clear fluid was noted. The was subsequently delivered by flexing the head to the incision. Body and shoulders followed without difficulty. The cord was clamped and cut. The infant was subsequently handed to the awaiting space physicist whose presence had been requested.. The placenta was delivered spontaneously intact with a three-vessel cord noted. The uterus was exteriorized and cleared of all clots and debris. The uterine incision was repaired in 2 layers using 0 monocryl. Hemostasis was visualized. Hemostasis was visualized bilaterally. The uterus was returned to the abdomen. The uterine incision was reexamined and it was noted to be hemostatic. The pelvis was copiously irrigated. The fascia was closed with 1 PDS suture, and the skin was closed with 3-0 monocryl. Sponge, lap, and instrument counts were correct x2. The patient was stable at the completion of the procedure and was subsequently transferred to the recovery room in stable condition. Diagnosis: Stroke: No - Discharge Data Discharge Date: 12/04/19 Discharge Disposition: Home, Self-Care 01 Condition: Good - Referral to Home Health Primary Care Physician: Mary Jo Tafoya MD - Discharge Diagnosis/Problem(s) (1) 39 weeks gestation of SNOMED Code(s): 75577451 ICD Code: Z3A.39 - 39 WEEKS GESTATION OF Status: Acute Current Visit: Yes (2) History of section complicating SNOMED Code(s): 982240408, 120015993 ICD Code: O34.219 - MATERNAL CARE FOR UNSP TYPE SCAR FROM PREVIOUS DEL Status: Acute Current Visit: Yes (3) Obesity SNOMED Code(s): 812893127, 807359512 ICD Code: E66.9 - OBESITY, UNSPECIFIED Status: Acute Current Visit: Yes Qualifiers: Obesity type: due to excess calories Serious obesity comorbidity presence: without serious comorbidity Body mass index: unspecified BMI - Patient Summary/Data Complications: None Consults: None Hospital Course: Uneventful - Patient Instructions Diet: Usual Diet as Tolerated Driving: Do Not Drive (2 weeks) Showering/Bathing: May Shower, No Tub Bathing/Swimming (X6 weeks) Wound/Incision Care: Keep Operative Site/Wound Site Clean and Dry Notify Provider of: Fever, Increased Pain, Swelling and Redness, Drainage, Nausea and/or Vomiting - Discharge Plan *PRESCRIPTION DRUG MONITORING PROGRAM REVIEWED*: Yes *COPY OF PRESCRIPTION DRUG MONITORING REPORT IN PATIENT ROBERTA: Yes Prescriptions/Med Rec: Acetaminophen/oxyCODONE [Percocet 325-5 MG] 1 tab PO Q8H PRN #30 tablet PRN Reason: Pain (Moderate 4-6) Home Medications: Home Meds Pnv No.95/Ferrous Fum/Folic AC [ Vitamin Tablet] 1 tab PO DAILY 12/01/19 [History] Acetaminophen/oxyCODONE [Percocet 325-5 MG] 1 tab PO Q8H PRN #30 tablet 12/04/19 [Rx] Docusate Sodium [Colace] 100 mg PO BID PRN cap 12/04/19 [Rx] Ibuprofen [Motrin] 600 mg PO Q6H PRN tablet 12/04/19 [Rx] Patient Handouts: Care After Delivery, Steps to Quit Smoking Referrals: Mary Jo Tafoya MD [Primary Care Provider] - (Patient will call Friday to make appointment for follow-up with Dr. Tafoya) - Discharge Summary/Plan Comment DC Time >30 min.: No - Patient Data Vitals - Most Recent: Last Vital Signs Temp 98.2 F 12/04/19 08:38 Pulse 83 12/04/19 08:38 Resp 16 12/04/19 08:38 BP 127/63 12/04/19 08:38 Pulse Ox 97 12/04/19 08:38 Weight - Most Recent: 234 lb 6.4 oz Med Orders - Current: Current Medications Diphenhydramine HCl (Benadryl) 25 mg IVPUSH Q6H PRN PRN Reason: Itching or Nausea Docusate Sodium (Colace) 100 mg PO BID PRN PRN Reason: Constipation Last Admin: 12/04/19 03:06 Dose: 100 mg Documented by: Ephedrine Sulfate (Ephedrine Sulfate) 5 mg IVPUSH SEECOMMENT PRN PRN Reason: Other Ibuprofen (Motrin) 600 mg PO Q6H PRN PRN Reason: mild pain or fever Last Admin: 12/04/19 05:16 Dose: 600 mg Documented by: Naloxone HCl (Narcan) 0.1 mg IVPUSH SEECOMMENT PRN PRN Reason: Respiratory Depression Oxycodone/Acetaminophen (Percocet 325-5 Mg) 2 tab PO Q4H PRN PRN Reason: Pain (severe 7-10) Last Admin: 12/04/19 08:38 Dose: 2 tab Documented by: Oxycodone/Acetaminophen (Percocet 325-5 Mg) 1 tab PO Q4H PRN PRN Reason: Pain (moderate 4-6) Discontinued Medications Bupivacaine HCl (Marcaine 0.5%) Confirm Administered Dose 30 ml .ROUTE .STK-MED ONE Stop: 12/02/19 07:17 Last Admin: 12/02/19 08:15 Dose: 20 ml Documented by: Cefazolin Sodium (Ancef) Confirm Administered Dose 2 gm .ROUTE .STK-MED ONE Stop: 12/02/19 06:23 Citric Acid/Sodium Citrate (Bicitra Solution) 30 ml PO ONETIME ONE Stop: 12/02/19 04:51 Last Admin: 12/02/19 06:52 Dose: 30 ml Documented by: Diphenhydramine HCl (Benadryl) 25 mg IVPUSH Q6H PRN PRN Reason: Pruritis Ephedrine Sulfate (Ephedrine 25 Mg/5 Ml Syringe) Confirm Administered Dose 25 mg IV .STK-MED ONE Stop: 12/02/19 08:23 Fentanyl (Sublimaze) 50 mcg IVPUSH Q5M PRN PRN Reason: Pain Cefazolin Sodium/Dextrose 3 gm (/ Premix) 75 mls @ 100 mls/hr IV ONETIME ONE Stop: 12/02/19 05:34 Last Admin: 12/02/19 10:51 Dose: Not Given Documented by: Oxytocin/Lactated Ringer's (Pitocin In Lr 10 Units/1,000 Ml) 10 unit in 1,000 mls @ 100 mls/hr IV ASDIRECTED [facility]; Protocol Lactated Ringer's (Ringers, Lactated) 1,000 mls @ 125 mls/hr IV ASDIRECTED [facility] Last Admin: 12/02/19 06:29 Dose: 125 mls/hr Documented by: Lactated Ringer's (Ringers, Lactated) Confirm Administered Dose 2,000 mls @ as directed .ROUTE .STK-MED ONE Stop: 12/02/19 08:05 Dextrose/Lactated Ringer's (Dextrose 5%-Lactated Ringers) 1,000 mls @ 125 mls/hr IV ASDIRECTED [facility] Stop: 12/02/19 19:29 Last Admin: 12/02/19 11:34 Dose: 125 mls/hr Documented by: Lactated Ringer's (Ringers, Lactated) 1,000 mls @ 999 mls/hr IV .BOLUS ONE Stop: 12/02/19 16:13 Last Admin: 12/02/19 15:27 Dose: 999 mls/hr Documented by: Ketorolac Tromethamine (Toradol) Confirm Administered Dose 30 mg .ROUTE .STK-MED ONE Stop: 12/02/19 08:23 Ketorolac Tromethamine (Toradol) 30 mg IVPUSH Q6H [facility] Stop: 12/02/19 23:31 Last Admin: 12/02/19 22:09 Dose: Not Given Documented by: Ketorolac Tromethamine (Toradol) 30 mg IVPUSH Q6H [facility] Stop: 12/03/19 03:01 Last Admin: 12/03/19 02:55 Dose: 30 mg Documented by: Lidocaine HCl (Xylocaine-Mpf 1%) Confirm Administered Dose 5 ml .ROUTE .STK-MED ONE Stop: 12/02/19 08:08 Metoclopramide HCl (Reglan) 10 mg IVPUSH ONETIME ONE Stop: 12/02/19 04:51 Last Admin: 12/02/19 06:53 Dose: 10 mg Documented by: Miscellaneous Medication (Phenylephrine 1 Mg/10 Ml-Ns) Confirm Administered Dose 1 mg IV .STK-MED ONE Stop: 12/02/19 08:38 Morphine Sulfate (Duramorph Pf) Confirm Administered Dose 1 mg .ROUTE .STK-MED ONE Stop: 12/02/19 06:23 Ondansetron HCl (Zofran) 4 mg IVPUSH ONETIME PRN PRN Reason: Nausea/Vomiting Oxytocin (Pitocin) Confirm Administered Dose 10 unit .ROUTE .STK-MED ONE Stop: 12/02/19 06:23 Oxytocin (Pitocin) Confirm Administered Dose 10 unit .ROUTE .STK-MED ONE Stop: 12/02/19 08:43 Sodium Chloride (Saline Flush) 10 ml FLUSH ASDIRECTED PRN PRN Reason: Keep Vein Open
== END 2019-12-04 10:59 | disposition home or self-care (01) | DRG 788 ==
LOC: JD.OB 05:22
PROVIDERS: ADMIT Obstetrics & Gynecology; ATTEND Obstetrics & Gynecology
PROC: 10D00Z1 Extraction of Products of Conception, Low, Open Approach (ICD-10-PCS; principal; 2019-12-02)
DX: O34.211 Maternal care for low transverse scar from previous cesarean delivery (principal); Z3A.39 39 weeks gestation of pregnancy; O99.214 Obesity complicating childbirth; E66.09 Other obesity due to excess calories; Z37.0 Single live birth
CPT/HCPCS: 01961; 36415; 59025; 85025; 86592; 86850; 86900; 86901; A9270-GY; J0171; J0690; J1885; J2001; J2274; J2370; J2590; J2765; J3490; J7120; J7121

== ENCOUNTER 2020-11-21 21:03 | Emergency (ER) | payer BC, OTHER ==
[2020-11-21] MEDS ORDERED: Acetaminophen 325 MG Tab PO ONE (22:33)
--- NOTE | 2020-11-21 22:37 | EDM.PDOC ---
ED HPI GENERAL MEDICAL PROBLEM - General Chief Complaint: Respiratory Problem Stated Complaint: HEADACHE/COUGH/BODY ACHES Time Seen by Provider: 11/21/20 22:29 Source of Information: Reports: Patient, RN Notes Reviewed History Limitations: Reports: No Limitations - History of Present Illness INITIAL COMMENTS - FREE TEXT/NARRATIVE: Patient is a 30-year-old female presenting to the emergency department with complaints of a 2-day history of headache, cough, body aches, sore throat and nasal congestion. She is also had vomiting but denies that she is nauseous. States that she gags herself when she coughs causing herself to vomit. Denies any abdominal pain or diarrhea. She has not had any documented fevers. 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 She denies any chronical medical conditions. Vital signs in triage were found to be stable. She was slightly hypertensive at a 144/86, afebrile 97.3, pulse 81, respiratory rate 20, oxygen is 99% on room air. Treatments CH[place] DECORATOR: Reports: Other (see below) Other Treatments [place] DECORATOR: motriin-mucinex Throat Pain Score (Numeric/FACES): 9 Headache Pain Score (Numeric/FACES): 8 - Related Data Allergies Allergy/AdvReac Type Severity Reaction Status Date / Time No Known Allergies Allergy Verified 12/02/19 04:50 Home Meds: Home Meds . 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 1 SAB- 2017 Psychiatric History: Reports: ADHD, Anxiety, Depression Other Psychiatric History: Prior to took Lexapro daily Endocrine/Metabolic History: Reports: Obesity/BMI 30+ - Past Surgical History HEENT Surgical History: Reports: Adenoidectomy, Oral Surgery, Tonsillectomy GI Surgical History: Reports: Cholecystectomy Female Surgical History: Reports: Section Social & Family History - Family History Family Medical History: No Pertinent Family History - Tobacco Use Tobacco Use Status *Q: Current Every Day Tobacco User Years of Tobacco use: 14 Packs/Tins Daily: 1 - Caffeine Use Caffeine Use: Reports: None - Recreational Drug Use Recreational Drug Use: No - Living Situation & Occupation Living situation: Reports: , with Spouse, with Family (2 kids) Occupation: Unemployed ED ROS GENERAL - Review of Systems Review Of Systems: Comprehensive ROS is negative, except as noted in HPI. ED EXAM, GENERAL - Physical Exam Exam: See Below General Appearance: Alert, WD/WN, No Apparent Distress Throat/Mouth: Normal Inspection, Normal Lips, Normal Teeth, Normal Gums, Normal Oropharynx, Normal Voice, No Airway Compromise Respiratory/Chest: No Respiratory Distress, Lungs Clear, Normal Breath Sounds, No Accessory Muscle Use, Chest Non-Tender Cardiovascular: Normal Peripheral Pulses, Regular Rate, Rhythm, No Edema, No Gallop, No JVD, No Murmur, No Rub GI/Abdominal: Normal Bowel Sounds, Soft, Non-Tender, No Organomegaly, No Distention, No Abnormal Bruit, No Mass Neurological: Alert, Oriented, CN II-XII Intact, Normal Cognition, Normal Gait, Normal Reflexes, No Motor/Sensory Deficits Psychiatric: Normal Affect, Normal Mood Skin Exam: Warm, Dry, Intact, Normal Color, No Rash Course - Vital Signs Last Recorded V/S: Last Vital Signs Temp 97.3 F 11/21/20 22:34 Pulse 81 11/21/20 22:34 Resp 20 11/21/20 22:34 BP 144/86 H 11/21/20 22:34 Pulse Ox 99 11/21/20 22:34 - Orders/Labs/Meds Labs: Laboratory Tests 11/21/20 Range/Units 20:40 SARS-CoV-2 RNA (WANDA) Negative (NEGATIVE) Meds: Medications Discontinued Medications Generic Name Dose Route Start Last Admin Trade Name Cesilia PRN Reason Stop Dose Admin Acetaminophen 975 mg 11/21/20 22:33 11/21/20 22:38 Acetaminophen 325 Mg Tab PO 11/21/20 22:34 975 mg NOW ONE Administration - Re-Assessments/Exams Free Text/Narrative Re-Assessment/Exam: Patient is a 30-year-old female presenting to the emergency department with complaints of headache, cough, body aches, sore throat, and runny nose. Exam is grossly unremarkable. Lung sounds are clear. She would like to be tested for Covid. I have ordered a 1 hour Covid test as well as chest x-ray. We will give her Tylenol 975 mg orally at this time as she has not taken any since this morning. 11/21/20 23:18 Chest x-ray is normal. No evidence of pneumonia. Covid test results are pending. Patient would like to go home and get ready for bed. We will notify her of her Covid results when they are available. Discussed recommendations if they are positive as well as negative. Discharge instructions as documented. Departure - Departure Time of Disposition: 23:16 Disposition: Home, Self-Care 01 Condition: Good Clinical Impression: Viral illness - Discharge Information *PRESCRIPTION DRUG MONITORING PROGRAM REVIEWED*: No *COPY OF PRESCRIPTION DRUG MONITORING REPORT IN PATIENT ROBERTA: No Instructions: Viral Illness, Adult Referrals: PCP,None [Primary Care Provider] - Forms: ED Department Discharge Additional Instructions: You were seen in the emergency department today for cough, congestion, body aches, runny nose, and headache. Rest x-ray was completed and found to be normal. Do not have pneumonia. While in the ER, you received a dose of Tylenol. A Covid test has been completed. Your nurse will call you when these results are available. If they do come back positive, the [facility] will be in contact with you. Quarantine per the recommendation. If this is negative, you are suffering from another viral respiratory illness. Treatment for both of these is symptomatic treatment. You may use Tylenol and ibuprofen as needed for discomfort. For nasal congestion, Flonase nasal spray is often beneficial. If you feel that your symptoms are worsening or he develop any new symptoms of concern, please do not hesitate to return to the emergency department for reevaluation. Sepsis Event Note (ED) - Evaluation Sepsis Screening Result: No Definite Risk
--- NOTE | 2020-11-22 08:36 | CR ---
Chest: Frontal view of the chest was obtained. Comparison: No prior chest imaging is available. Heart size and mediastinum are normal. Lungs are clear with no acute parenchymal change. No acute osseous abnormality is appreciated. Impression: 1. Nothing acute is seen on frontal chest x-ray. Diagnostic code #1
== END 2020-11-21 23:28 | disposition home or self-care (01) ==
LOC: JD.ED 21:03
DX: B34.9 Viral infection, unspecified (principal); E66.9 Obesity, unspecified; Z72.0 Tobacco use; Z68.37 Body mass index [BMI] 37.0-37.9, adult; Z20.822 Contact with and (suspected) exposure to COVID-19
CPT/HCPCS: 71045; 87635; 99283; A9270; U0002

== ENCOUNTER 2023-02-26 17:38 | Emergency (ER) | payer BC ==
[2023-02-26] MEDS ORDERED: Ketorolac 60 MG/2 ML SDV IM ONE (19:58)
== END 2023-02-26 20:22 | disposition home or self-care (01) ==
LOC: JD.ED 17:38
DX: M54.6 Pain in thoracic spine (principal); M54.50 Low back pain, unspecified; F17.210 Nicotine dependence, cigarettes, uncomplicated; Z90.49 Acquired absence of other specified parts of digestive tract
CPT/HCPCS: 72072; 72100; 96372; 99283; J1885

== ENCOUNTER 2023-11-13 11:44 | Emergency (ER) | payer BC, OTHER ==
[2023-11-13] MEDS: Lidocaine 1% 20 ML MDV INJECT ONE (14:30)
[2023-11-13] MEDS: Lidocaine 1% 20 ML MDV ONE (15:17)
== END 2023-11-13 14:56 | disposition home or self-care (01) ==
LOC: JD.ED 11:44
DX: S61.211A Laceration without foreign body of left index finger without damage to nail, initial encounter (principal); S61.215A Laceration without foreign body of left ring finger without damage to nail, initial encounter; E66.9 Obesity, unspecified; F17.210 Nicotine dependence, cigarettes, uncomplicated; Z86.16 Personal history of COVID-19; Z90.49 Acquired absence of other specified parts of digestive tract; Z68.37 Body mass index [BMI] 37.0-37.9, adult; W26.0XXA Contact with knife, initial encounter
CPT/HCPCS: 12002; 99282; J3490

== ENCOUNTER 2024-02-05 12:51 | Emergency (ER) | payer BC, OTHER ==
[2024-02-05 15:16] LABS: BASOPHILS PERCENT AUTO 0.1 % (0.0-1.0); EOSINOPHILS PERCENT AUTO 0.1 % (0.0-6.0); HEMATOCRIT 38.7 % (37.0-47.0); HEMOGLOBIN 12.9 gm/dl (12.0-16.0); IMMATURE GRAN ABSOLUTE AUTO 0.03 K/mm3 (0.00-0.05); IMMATURE GRAN PERCENT AUTO 0.3 % (0.0-0.4); LYMPHOCYTES ABSOLUTE AUTO 2.5 K/mm3 (1.0-4.8); LYMPHOCYTES PERCENT AUTO 22.5 % (24.0-44.0); MEAN CORPUSCULAR HGB CONC 33.3 g/dl (32.0-36.0); MEAN CORPUSCULAR VOLUME 84.1 fl (83.0-99.0); MEAN PLATELET VOLUME 10.7 fl (9.4-12.3); NEUTROPHILS ABSOLUTE AUTO 7.4 K/mm3 (1.8-7.7); PLATELET COUNT,PLT 263 K/mm3 (150-400); WHITE BLOOD CELL COUNT,WBC 10.92 K/mm3 (3.9-11.3)
[2024-02-05] MEDS ORDERED: Naloxone 0.4 MG/ML SDV IVPUSH PRN (15:28)
[2024-02-05 15:34] LABS: ALBUMIN 3.3 g/dl (3.4-5.0); ANION GAP 12.8 (5-15); BILIRUBIN TOTAL 0.2 mg/dL (0.2-1.0); BUN/CREATININE RATIO 11.4 (14-18); CALCIUM 8.7 mg/dL (8.5-10.1); CREATININE 0.7 mg/dL (0.55-1.02); EST CRCL DRUG DOSING (CG) 96.33 mL/min; POTASSIUM,K 3.8 mEq/L (3.5-5.1); PROTEIN TOTAL,TP 6.7 g/dl (6.4-8.2)
[2024-02-05] MEDS: HYDROmorphone 0.5 MG/0.5 ML Syringe IVPUSH ONE (16:21)
[2024-02-05] MEDS: Iopamidol 612 MG/ML 100 ML Bottle IVPUSH ONE (16:28)
[2024-02-05] MEDS: Sodium Chloride 0.9% 10 ML Syringe FLUSH PRN (16:28)
== END 2024-02-05 18:05 | disposition home or self-care (01) ==
LOC: JD.ED 12:51
DX: R10.2 Pelvic and perineal pain (principal); E66.9 Obesity, unspecified; Z68.36 Body mass index [BMI] 36.0-36.9, adult; Z90.49 Acquired absence of other specified parts of digestive tract
CPT/HCPCS: 36415; 74177; 74177-26; 80053; 85025; 96374; 99284-25; J1171; J3490; Q9967